=== PATIENT | male | born 1965 | race Caucasian/White ===

== ENCOUNTER → 2018-10-07 | Emergency (ER) | payer BC ==
[~2018-10-07] VITALS: Ht 177.8 cm; Wt 106.6 kg
[~2018-10-07] MED LIST: DICLOFENAC SODI75 MG
== END | disposition home or self-care (01) ==
LOC: ER 21:33
DX: S42.125A Nondisplaced fracture of acromial process, left shoulder, initial encounter for closed fracture (principal); X58.XXXA Exposure to other specified factors, initial encounter; Y93.89 Activity, other specified; Y92.89 Other specified places as the place of occurrence of the external cause; Y99.8 Other external cause status